=== PATIENT | female | born 1990 | race African-American/Black ===

== ENCOUNTER 2022-12-04 13:08 | Emergency (ER) | payer SELFPAY ==
[2022-12-04] VITALS (20 sets, daily range): BP systolic 85–151; BP diastolic 34–128; PULSE 68–96; RESP 10–29; TEMP 37.1; O2SAT 94–100
--- NOTE | 2022-12-04 13:38 | ED.ALLEREA ---
HPI - Allergic Reaction General Chief complaint: Allergic Reaction Stated complaint: allergic reaction Time Seen by Provider: 12/04/22 13:28 History of Present Illness HPI narrative: Patient is a 32-year-old female with a history of asthma presenting with a possible allergic reaction. Patient states that she took some Excedrin for a headache approximately 15 to 20 minutes later her lips felt numb and she felt like her throat was starting to swell. States that it feels a bit difficult to breathe. She denies any wheezing or shortness of breath. She does report some nausea but no emesis. States that her eyes were itchy but no other rash. States that she had a similar episode after taking ibuprofen. States that she has never needed an EpiPen before. She has never seen an environmental professional. No chest pain, cough, abdominal pain. Related Data Allergies Allergy/AdvReac Type Severity Reaction Status Date / Time No Known Allergies Allergy Verified 12/04/22 13:51 Review of Systems Review of Systems: All systems reviewed & are unremarkable except as noted in HPI and below Exam Narrative: GENERAL: Well-appearing, well-nourished, and in no acute distress. HEAD: Normocephalic, atraumatic. EYES: PERRLA and EOMI. ENT: Nares clear, no rhinorrhea or epistaxis. Mucous membranes moist. NECK: Supple. CHEST: Clear to auscultation. No respiratory distress. HEART: Regular rate and rhythm. No murmur heard. Normal peripheral pulses. ABDOMEN: Soft, nontender, nondistended, normal active bowel sounds. EXTREMITIES: Normal range of motion. No edema. SKIN: Warm, dry, no rash. NEURO: No focal deficits. Alert and oriented x3. PSYCH: Normal mood and affect. Course Vital Signs Vital signs: Vital Signs Temperature 98.8 F 12/04/22 13:18 Pulse Rate 93 12/04/22 13:18 Respiratory Rate 18 12/04/22 13:18 Blood Pressure 144/87 H 12/04/22 13:18 Pulse Oximetry 100 12/04/22 13:18 Oxygen Delivery Room Air 12/04/22 13:18 Temperature 98.8 F 12/04/22 13:18 Pulse Rate 68 12/04/22 17:54 Respiratory Rate 16 12/04/22 17:54 Blood Pressure 85/34 L 12/04/22 15:18 Pulse Oximetry 98 12/04/22 17:54 Oxygen Delivery Room Air 12/04/22 13:18 MDM - Allergic Reaction MDM Narrative Medical decision making narrative: Patient is a 32-year-old female presenting with a possible allergic reaction. Vitals within normal limits. Patient is well-appearing and in no acute distress. Exam is unremarkable. She is breathing comfortably, saturating 100% on room air. We will start with fluids, Benadryl, Pepcid, Solu-Medrol. Patient observed for approximately 4 hours and has had complete resolution of her symptoms. She is asking to go home which I think is appropriate. We will send her out with a Medrol Dosepak. She already has Benadryl at home. Patient states that she needs a new primary so we will provide this number. Recommended close follow-up. Appropriate return precautions given. Patient voiced understanding and is agreeable with plan. Discharged in stable condition. Differential Diagnosis Differential diagnosis: Likely anaphylaxis, allergic reaction, angioedema, contact dermatitis, adverse reaction to drug and urticaria Critical Care Time Critical Care Time Critical Care Time: No Discharge Plan Discharge Clinical Impression: Allergic reaction Patient Disposition: Home, Self-Care Condition: Stable Instructions: Antibiotic Form, General Allergic Reaction (ED) Additional Instructions: Please take the steroids as prescribed. Please follow-up closely with primary care. If your symptoms return or worsen, you develop difficulty breathing or swallowing, or other concerning symptoms arise, please return to the ER. Prescriptions: New methylprednisolone [Medrol (Chi)] 4 mg tablets,dose pack See Rx Instructions .ROUTE .COMPLEX Qty: 21 0RF Rx Instructions: orally per package directions Follow-up/Referrals: Malathi Maravilla
[2022-12-04] MEDS: SODIUM CHLORIDE 0.9% IV 1,000 ML 999 ML IV CONT (13:53)
[2022-12-04] MEDS: FAMOTIDINE 20 MG/2 ML VIAL IV PUSH (13:54)
[2022-12-04] MEDS: methylPREDNISolone SOD SUCC 125 MG VIAL IV PUSH (13:54)
[2022-12-04] MEDS: diphenhydrAMINE HCl INJ 50 MG/ML VIAL IV PUSH (13:54)
--- NOTE | 2022-12-04 14:15 | PC.NURSE ---
rn droppped solu-medrol on floor. this rn overrode and pulled another dose to give to pt.
== END 2022-12-04 17:57 | disposition home or self-care (01) ==
PROVIDERS: Emergency Provider Emergency Medicine
DX: T78.40XA Allergy, unspecified, initial encounter (principal)
CPT/HCPCS: 96361; 96374; 96375; 99284; J1200; J2930; J7030